=== PATIENT | female | born 1935 | race Caucasian/White ===

== ENCOUNTER 2019-05-14 09:53 | Outpatient (CLI) | payer MEDICARE ==
[~2019-05-14] VITALS: Ht 162.6 cm; Wt 68.0 kg
[~2019-05-14 09:53] MED LIST: ATOR10TA87 PO; CEFD300C3 PO; HYDR-4069 PO; LEVO125T69 PO
[2019-05-14 10:46] LABS: TOTAL HEMOGLOBIN 15.6 G/dl (12.0-16.0)
[2019-05-14] MEDS ORDERED: albuterol 2.5 MG/3 ML nebule NEB ONE (11:15)
== END 2019-05-14 23:59 | disposition home or self-care (01) ==
LOC: RT 09:53
PROVIDERS: ATTEND Internal Medicine
DX: J43.9 Emphysema, unspecified (principal); R94.2 Abnormal results of pulmonary function studies
CPT/HCPCS: 85018; 94010; 94727; 94729; 94760

== ENCOUNTER 2020-02-05 08:41 | Emergency (ER) | payer MEDICARE ==
[~2020-02-05] VITALS: Ht 157.5 cm; Wt 67.0 kg
[~2020-02-05 08:41] MED LIST changes: +epiNEPHrine 0.1mg/ml 10ml syringe ONE
[2020-02-05] MEDS ORDERED: normal saline 1000ML IV soln IV ONE (09:05)
[2020-02-05] MEDS ORDERED: ondansetron/PF 4mg/2ml inj IV ONE (09:20)
[2020-02-05 09:31] LABS: BASOPHILS # (AUTO) 0.1 X10'3 (0-0.2); BASOPHILS % (AUTO) 0.6 % (0-1); EOSINOPHILS # (AUTO) 0.1 X10'3 (0-0.9); EOSINOPHILS % (AUTO) 1.3 % (0-6); HEMATOCRIT 39.5 % (35.0-45.0); HEMOGLOBIN 12.8 g/dl (12.0-16.0); LYMPHOCYTES # (AUTO) 2.4 X10'3 (1.1-4.8); LYMPHOCYTES % (AUTO) 21.2 % (21-51); MEAN CORPUSCULAR HEMOGLOBIN 29.8 PG (27.0-31.0); MEAN CORPUSCULAR HGB CONC 32.5 g/dL (33.0-36.5); MEAN CORPUSCULAR VOLUME 91.6 FL (78-98); MEAN PLATELET VOLUME 7.9 FL (7.4-10.4); MONOCYTES # (AUTO) 0.6 X10'3 (0-0.9); NEUTROPHILS # (AUTO) 8.3 X10'3 (1.8-7.7); NEUTROPHILS % (AUTO) 71.9 % (42-75); PLATELET COUNT 300 X10'3 (140-440); RED BLOOD COUNT 4.31 X10'6 (4.20-5.60); RED CELL DISTRIBUTION WIDTH 14.8 % (11.5-14.5); WHITE BLOOD COUNT 11.6 X10'3 (4.5-11.0)
--- NOTE | 2020-02-05 09:45 | NUR ---
Notified Denice HERNANDEZ and Peg MEEHAN that it appeared her abdomen was more distended than it had been upon initial assessment. Denice HERNANDEZ stated that he would like to perform and abd US. Will obtain Ultrasound and place in room.
[2020-02-05 09:53] LABS: ALANINE AMINOTRANSFERASE 98 U/L (12-78); ALBUMIN/GLOBULIN RATIO 0.9 (1.1-1.5); ALKALINE PHOSPHATASE 70 IU/L (46-116); ANION GAP 14 (8-16); ASPARTATE AMINO TRANSFERASE 71 U/L (10-37); BILIRUBIN,TOTAL 0.6 MG/DL (0.1-1.0); BLOOD UREA NITROGEN 14 MG/DL (7-18); CALCIUM 8.2 MG/DL (8.5-10.1); CHLORIDE 107 MMOL/L (99-107); GLUCOSE 271 MG/DL (70-104); POTASSIUM 3.7 MMOL/L (3.5-5.1); SODIUM 141 MMOL/L (135-145); TOTAL CARBON DIOXIDE 19.6 MMOL/L (24-32); TOTAL PROTEIN 6.2 G/DL (6.4-8.2); eGFR 36 ML/MIN
[2020-02-05] MEDS ORDERED: normal saline 1000ML IV soln IVB ONE (10:00)
[2020-02-05] MEDS ORDERED: famotidine/PF 10 mg/ml inj IV ONE (10:00)
[2020-02-05] MEDS ORDERED: morphine 4 MG/ML inj SYRINge IV ONE (10:00)
[2020-02-05] MEDS ORDERED: metoclopramide 5 mg/ml inj IV ONE (10:00)
--- NOTE | 2020-02-05 10:01 | NUR ---
after obtaining pt's verbal consent, updated daughter Vannesa on pt status. Daughter reports pt experiences bouts of high anxiety; prescribed xanax 0.5mg prn
[2020-02-05 10:13] LABS: LIPASE 101 U/L (73-393)
--- NOTE | 2020-02-05 11:45 | NUR ---
Pt's daughter, Aubree, bedside. Pt was resting quietly, beginning to doze, but when daughter arrived she began to moan with increased restlessness noted.
[2020-02-05] MEDS ORDERED: piperacillin/tazo 3.375gm/50ml 50 ML IV ONE (11:50)
[2020-02-05] MEDS ORDERED: vancomycin/NS 1 GM ADD-VANTAGE 250 ML IV ONE (11:50)
[2020-02-05 12:05] VITALS: BP 100/80
[2020-02-05] MEDS ORDERED: CLON0.3T36 PO (12:34)
[2020-02-05] MEDS ORDERED: ATOR20TA66 PO (12:34)
[2020-02-05] MEDS ORDERED: LOSA100T57 PO (12:34)
[2020-02-05] MEDS ORDERED: LEVO-145 PO (12:34)
[2020-02-05] MEDS ORDERED: ALPR0.5T9 PO (12:34)
--- NOTE | 2020-02-05 13:55 | NUR ---
1238: Pt became unresponsive while cardiac US underway. ED Lawrence & MARY Galdamez notified 1240: Chest compressions started per ACLS protocol 1252: Cardiac decompression by ed Lawrence, 5ml serosanganous fluid aspirated; ACLS protocol continued 1303: Cardiac decompression by edwi Lawrence, 3ml serosanganous fluid aspirated; ACLS protocol continued 1308: TOD 1338: [facility]. Coronor Lauren Chandler contacted; [facility] unless changed by daughter. Lauren aware current contact for daughter reflects disconnection status. She will work to identify current contact data. 1350: [facility] contacted. Reference # [id number].
--- NOTE | 2020-02-05 14:05 | NUR ---
LEILA SPOKE WITH DAUGHTER CORRECT PHONE NUMBER [phone]. DAUGHTER CLARKE WILL BE ON HER WAY IN
--- NOTE | 2020-02-05 14:06 | NUR ---
Per Lauren Trejo, daughter's cell # [phone]. Carlos Mak currently speaking with MARY Galdamez. Addendum: 02/05/20 at 1456 by AMANDA russel Mak #: [phone].
--- NOTE | 2020-02-05 14:55 | NUR ---
Per Aubree, daughter, okay to release body to [facility].
--- NOTE | 2020-02-05 14:58 | NUR ---
Teena Quintana ([phone]) notified of family's request for their services. Per Ira, garbage pick up man will not occur immediately as vibratory pile driver currently out of area on another call. LEROY Phillips notified.
== END 2020-02-05 15:59 | disposition expired ==
LOC: ER 08:42
DX: I31.3 Pericardial effusion (noninflammatory) (principal); A41.9 Sepsis, unspecified organism; R55 Syncope and collapse; I46.9 Cardiac arrest, cause unspecified; R06.02 Shortness of breath; I10 Essential (primary) hypertension; J44.9 Chronic obstructive pulmonary disease, unspecified; Z88.8 Allergy status to other drugs, medicaments and biological substances; Z79.899 Other long term (current) drug therapy
CPT/HCPCS: 36415; 71045; 74176; 80053; 83605; 83690; 84145; 84484; 85025; 85651; 87040; 92950; 93005; 93308; 96361; 96365; 96368; 96375; 99291; 99292; J0171; J2270; J2405; J2543; J2765; J3370; J3490; J7030; 94760; 96366